=== PATIENT | male | born 1970 | race Caucasian/White ===

== ENCOUNTER 2018-02-07 19:02 | Emergency (ER) | payer SELFPAY ==
[~2018-02-07] VITALS: Ht 167.6 cm; Wt 80.0 kg
[2018-02-07] MEDS ORDERED: IBUPROFEN 800 MG TABLET PO ONE (20:00)
[2018-02-07] MEDS ORDERED: LIDOCAINE 1% 10 ML VIAL INJ ONE (20:30)
[2018-02-07] MEDS ORDERED: POVIDONE-IODINE 10% 15 ML SOLUTION UD TP ONE (20:30)
[2018-02-07 22:24] VITALS: BP 141/76
== END 2018-02-07 22:29 | disposition home or self-care (01) ==
LOC: EMS 19:15
DX: S63.287A Dislocation of proximal interphalangeal joint of left little finger, initial encounter (principal); W20.8XXA Other cause of strike by thrown, projected or falling object, initial encounter; Y93.67 Activity, basketball; Y92.89 Other specified places as the place of occurrence of the external cause; Y99.8 Other external cause status
CPT/HCPCS: 26770; 73140; 99284; J3490